=== PATIENT | female | born 1935 | race Caucasian/White ===

== ENCOUNTER 2019-01-18 16:40 | Inpatient (IN) ==
[2019-01-18] MEDS ORDERED: SODIUM CHLORIDE 0.9% 1,000 ML IV STA (17:10)
[2019-01-18 17:28] LABS: Basophils # 0.1 10*3/uL (0.0-0.2); Basophils % 0.7 % (0.0-0.8); Eosinophils # 0.1 10*3/uL (0.0-0.87); Eosinophils % 0.7 % (0.00-10.9); Hematocrit 43.2 VOL% (35.7-47.0); Hemoglobin 13.4 GM/DL (12.0-16.0); Immature Granulocytes % 0.5 %; Immature Granulocytes Absolute 0.04 #; Lymphocytes # 0.5 10*3/uL (1.4-4.0); Lymphocytes % 6.3 % (21.3-54.2); Mean Corpuscular Volume 87.4 FL (87-102); Mean Platelet Volume 12.1 FL (9.6-12.0); Monocytes % 7.7 % (1.7-12.7); Neutrophils % 84.1 % (38.7-73.9); Platelet Count 228 T/CUMM (130-400); Red Blood Count 4.94 MC/CUMM (3.8-5.5); Red Cell Distribution Width 13.3 % (9.3-17.3); White Blood Count 8.3 T/CUMM (4-12)
[2019-01-18 17:37] LABS: PT Patient Result 10.9 SECS
[2019-01-18 17:45] LABS: Alanine Aminotransferase < 9 U/L (13-56); Albumin 2.5 G/DL (3.4-5.0); Alkaline Phosphatase 126 U/L (45-117); Aspartate Amino Transferase 21 U/L (0-37); Bilirubin,Total < 0.39 MG/DL (0.2-1.0); Blood Urea Nitrogen 26 MG/DL (7-18); Calcium 7.5 MG/DL (8.5-10.1); Glucose 85 MG/DL (74-106); Osmolality,Calculated 284.3 MOS/KG (273-304); Total Protein 5.1 G/DL (6.4-8.3)
[2019-01-18 17:45] LABS: Apearance,Urine Slightly Hazy (Clear); Bacteria,Urine Occasional /HPF (Few); Bilirubin,Urine Negative (Negative); Blood, Urine Negative (Negative); Glucose,Urine (UA) Negative (Negative); Hyaline Casts,Urine 57 /LPF (0-3); Ketones,Urine 20 mg/dL (Negative); Mucus,Urine Occasional /LPF (Occasional); Nitrite,Urine Negative (Negative); Protein,Urine 30 MG/DL; Squamous Epithelial Cell,Urine Occasional /HPF (0-10); Urine Color Yellow (Yellow); Urine Specific Gravity 1.024 (1.001-1.035)
[2019-01-18] MEDS ORDERED: cefTRIAXone 1,000 MG in SODIUM CHLORIDE 0.9% 100 ML IV STA (18:08)
[2019-01-18] MEDS ORDERED: ACETAMINOPHEN 325 MG TABLET PO PRN (19:38)
[2019-01-18] MEDS ORDERED: ONDANSETRON 4 MG/2 ML VIAL IV PRN (19:38)
[2019-01-18] MEDS ORDERED: MORPHINE 4 MG/1 ML VIAL IV PRN (19:38)
[2019-01-18] MEDS ORDERED: SODIUM CHLORIDE 0.9% 1,000 ML IV SCH (19:38)
[2019-01-18] MEDS: ENOXAPARIN 40 MG/0.4 ML SYRINGE SUBCUT SCH (20:51)
[2019-01-18] MEDS: DOCUSATE SODIUM 100 MG CAPSULE PO SCH (21:25)
[2019-01-18] MEDS: DONEPEZIL 10 MG TABLET PO SCH (21:25)
[2019-01-18] MEDS: MEMANTINE 10 MG TABLET PO SCH (21:25)
[2019-01-18] MEDS: CARBIDOPA/LEVODOPA CR 25-100 MG TABLET PO SCH (21:25)
[2019-01-18] MEDS: ALBUTEROL/IPRATROPIUM 3 ML NEB RESP TX SCH (23:35)
[2019-01-19] MEDS: ALBUTEROL/IPRATROPIUM 3 ML NEB RESP TX SCH ×6 (04:00→23:00)
[2019-01-19 05:02] LABS: Basophils % 0.8 % (0.0-0.8); Eosinophils # 0.1 10*3/uL (0.0-0.87); Hematocrit 37.4 VOL% (35.7-47.0); Hemoglobin 11.9 GM/DL (12.0-16.0); Immature Granulocytes % 0.2 %; Immature Granulocytes Absolute 0.01 #; Lymphocytes # 0.6 10*3/uL (1.4-4.0); Lymphocytes % 11.8 % (21.3-54.2); Mean Corpuscular HGB Conc 31.8 GM/DL (32-36); Mean Platelet Volume 12.2 FL (9.6-12.0); Monocytes % 10.3 % (1.7-12.7); Neutrophils % 75.9 % (38.7-73.9); Platelet Count 169 T/CUMM (130-400); Red Cell Distribution Width 13.4 % (9.3-17.3); White Blood Count 5.2 T/CUMM (4-12)
[2019-01-19 05:20] LABS: Alanine Aminotransferase < 9 U/L (13-56); Albumin 2.1 G/DL (3.4-5.0); Alkaline Phosphatase 108 U/L (45-117); Aspartate Amino Transferase 18 U/L (0-37); Blood Urea Nitrogen 23 MG/DL (7-18); Calcium 7.2 MG/DL (8.5-10.1); Glucose 68 MG/DL (74-106); Osmolality,Calculated 287.8 MOS/KG (273-304); Total Protein 4.6 G/DL (6.4-8.3)
[2019-01-19] MEDS ORDERED: PANTOPRAZOLE 40 MG VIAL IV SCH (09:00)
[2019-01-19] MEDS: CARBIDOPA/LEVODOPA CR 25-100 MG TABLET PO SCH ×3 (09:29→21:07)
[2019-01-19] MEDS: ASCORBIC ACID 500 MG TABLET PO SCH (09:29)
[2019-01-19] MEDS: FERROUS SULFATE 325 MG TABLET PO SCH (09:30)
[2019-01-19] MEDS: MEMANTINE 10 MG TABLET PO SCH ×2 (09:30→21:07)
[2019-01-19] MEDS: ASPIRIN EC 81 MG TABLET PO SCH (09:30)
[2019-01-19] MEDS: amLODIPine 5 MG TABLET PO SCH (09:30)
[2019-01-19] MEDS: LOSARTAN 50 MG TABLET PO SCH (09:30)
[2019-01-19] MEDS: DEXTROSE 5% NACL 0.45% 1,000 ML IV SCH ×2 (09:30→19:39)
[2019-01-19] MEDS: PARoxetine 20 MG TABLET PO SCH (09:30)
[2019-01-19] MEDS: ROSUVASTATIN 10 MG TABLET PO SCH (09:30)
[2019-01-19] MEDS: PANTOPRAZOLE 40 MG TABLET PO SCH (09:30)
[2019-01-19] MEDS: DOCUSATE SODIUM 100 MG CAPSULE PO SCH ×2 (09:30→21:07)
[2019-01-19] MEDS: LEVOTHYROXINE 75 MCG TABLET PO SCH (09:30)
[2019-01-19] MEDS: cefTRIAXone 1,000 MG in SYRINGE 1 EACH IV SCH (18:41)
[2019-01-19] MEDS: ENOXAPARIN 40 MG/0.4 ML SYRINGE SUBCUT SCH (21:07)
[2019-01-19] MEDS: DONEPEZIL 10 MG TABLET PO SCH (21:07)
[2019-01-20] MEDS: ALBUTEROL/IPRATROPIUM 3 ML NEB RESP TX SCH ×5 (03:00→19:20)
[2019-01-20] MEDS: LEVOTHYROXINE 75 MCG TABLET PO SCH (05:16)
[2019-01-20] MEDS: DEXTROSE 5% NACL 0.45% 1,000 ML IV SCH (05:16)
[2019-01-20] MEDS: amLODIPine 5 MG TABLET PO SCH (08:49)
[2019-01-20] MEDS: ROSUVASTATIN 10 MG TABLET PO SCH (08:49)
[2019-01-20] MEDS: PANTOPRAZOLE 40 MG TABLET PO SCH (08:49)
[2019-01-20] MEDS: PARoxetine 20 MG TABLET PO SCH (08:49)
[2019-01-20] MEDS: DOCUSATE SODIUM 100 MG CAPSULE PO SCH ×3 (08:49→21:38)
[2019-01-20] MEDS: CARBIDOPA/LEVODOPA CR 25-100 MG TABLET PO SCH ×3 (08:49→21:37)
[2019-01-20] MEDS: ASCORBIC ACID 500 MG TABLET PO SCH (08:49)
[2019-01-20] MEDS: ASPIRIN EC 81 MG TABLET PO SCH (08:49)
[2019-01-20] MEDS: LOSARTAN 50 MG TABLET PO SCH (08:49)
[2019-01-20] MEDS: FERROUS SULFATE 325 MG TABLET PO SCH (08:49)
[2019-01-20] MEDS: MEMANTINE 10 MG TABLET PO SCH ×2 (08:50→21:37)
[2019-01-20] MEDS: cefTRIAXone 1,000 MG in SYRINGE 1 EACH IV SCH (17:19)
[2019-01-20] MEDS: DONEPEZIL 10 MG TABLET PO SCH (21:37)
[2019-01-20] MEDS: ENOXAPARIN 40 MG/0.4 ML SYRINGE SUBCUT SCH (21:37)
[2019-01-21] MEDS: DEXTROSE 5% NACL 0.45% 1,000 ML IV SCH ×3 (00:01→11:04)
[2019-01-21] MEDS: ALBUTEROL/IPRATROPIUM 3 ML NEB RESP TX SCH ×4 (01:42→12:28)
[2019-01-21] MEDS: LEVOTHYROXINE 75 MCG TABLET PO SCH (05:42)
[2019-01-21] MEDS: MEMANTINE 10 MG TABLET PO SCH (09:29)
[2019-01-21] MEDS: FERROUS SULFATE 325 MG TABLET PO SCH (09:29)
[2019-01-21] MEDS: ROSUVASTATIN 10 MG TABLET PO SCH (09:29)
[2019-01-21] MEDS: DOCUSATE SODIUM 100 MG CAPSULE PO SCH (09:30)
[2019-01-21] MEDS: amLODIPine 5 MG TABLET PO SCH (09:30)
[2019-01-21] MEDS: PARoxetine 20 MG TABLET PO SCH (09:30)
[2019-01-21] MEDS: ASPIRIN EC 81 MG TABLET PO SCH (09:31)
[2019-01-21] MEDS: ASCORBIC ACID 500 MG TABLET PO SCH (09:31)
[2019-01-21] MEDS: LOSARTAN 50 MG TABLET PO SCH (09:31)
[2019-01-21] MEDS: PANTOPRAZOLE 40 MG TABLET PO SCH (09:32)
[2019-01-21] MEDS: CARBIDOPA/LEVODOPA CR 25-100 MG TABLET PO SCH (09:32)
[2019-01-21 11:14] VITALS: BP 137/62
== END 2019-01-21 11:00 | disposition home health service (06) | DRG 641 ==
LOC: EDUNIT# → N.ED 16:40 → N.EDINP 19:07 → N.5E 19:53
PROVIDERS: ADMIT Family Medicine; ATTEND Family Medicine

== ENCOUNTER 2019-05-06 12:51 | Inpatient (IN) ==
[2019-05-06] MEDS ORDERED: POTASSIUM BICARB EFFERVESCENT 25 MEQ TABLET PO ONE (13:22)
[2019-05-06 14:08] LABS: Apearance,Urine CLEAR (Clear); Bacteria,Urine Moderate /HPF (Few); Bilirubin,Urine Negative (Negative); Blood, Urine Negative (Negative); Glucose,Urine (UA) Negative (Negative); Ketones,Urine Negative (Negative); Nitrite,Urine Negative (Negative); Protein,Urine Negative; RBC,Urine <1 /HPF (0-4); Urine Color Yellow (Yellow); Urine Specific Gravity 1.009 (1.001-1.035); Urine Urobilinogen < 2.0 EU/DL (0.2-1.0); WBC,Urine 24 /HPF (0-6)
[2019-05-06] MEDS: POTASSIUM CHLORIDE INJ 30 MEQ in SODIUM CHLORIDE 0.9% 1,000 ML IV SCH (14:15)
[2019-05-06 14:43] LABS: Basophils % 0.2 % (0.0-0.8); Eosinophils % 0.2 % (0.00-10.9); Hematocrit 38.7 VOL% (35.7-47.0); Hemoglobin 12.5 GM/DL (12.0-16.0); Immature Granulocytes Absolute 0.05 #; Lymphocytes % 20.6 % (21.3-54.2); Mean Corpuscular HGB Conc 32.3 GM/DL (32-36); Mean Corpuscular Volume 86.6 FL (87-102); Mean Platelet Volume 9.4 FL (9.6-12.0); Monocytes % 8.2 % (1.7-12.7); Neutrophils % 69.8 % (38.7-73.9); Platelet Count 290 T/CUMM (130-400); Red Blood Count 4.47 MC/CUMM (3.8-5.5); White Blood Count 4.9 T/CUMM (4-12)
[2019-05-06 15:08] LABS: Albumin 1.5 G/DL (3.4-5.0); Bilirubin,Total 0.4 MG/DL (0.2-1.0); Calcium 6.9 MG/DL (8.5-10.1); Osmolality,Calculated 269.4 MOS/KG (273-304); Thyroid Stimulating Hormone 4.78 uIU/ml (0.358-3.74); Total Protein 4.2 G/DL (6.4-8.3)
[2019-05-06] MEDS ORDERED: cefTRIAXone 1,000 MG in SODIUM CHLORIDE 0.9% 100 ML IV STA (15:47)
[2019-05-06] MEDS ORDERED: DEXTROSE 5% NACL 0.45% 1,000 ML IV SCH (18:34)
[2019-05-06] MEDS ORDERED: ACETAMINOPHEN 325 MG TABLET PO PRN (18:34)
[2019-05-06] MEDS ORDERED: ONDANSETRON 4 MG/2 ML VIAL IV PRN (18:34)
[2019-05-06] MEDS: DONEPEZIL 10 MG TABLET PO SCH (20:22)
[2019-05-06] MEDS: CARBIDOPA/LEVODOPA CR 25-100 MG TABLET PO SCH (20:23)
[2019-05-06] MEDS: CALCIUM (CARBONATE)/VITAMIN D 600 MG-400 UNIT TABLET PO SCH (20:23)
[2019-05-06] MEDS: DOCUSATE SODIUM 100 MG CAPSULE PO SCH ×2 (20:23→20:25)
[2019-05-06] MEDS: MEMANTINE 10 MG TABLET PO SCH (20:23)
[2019-05-06] MEDS ORDERED: ENOXAPARIN 30 MG/0.3 ML SYRINGE SUBCUT SCH (21:00)
[2019-05-07] MEDS: POTASSIUM CHLORIDE INJ 30 MEQ in SODIUM CHLORIDE 0.9% 1,000 ML IV SCH ×4 (00:20→23:44)
[2019-05-07] MEDS: LEVOTHYROXINE 75 MCG TABLET PO SCH (05:58)
[2019-05-07 06:05] LABS: Basophils % 0.2 % (0.0-0.8); Eosinophils % 0.4 % (0.00-10.9); Hematocrit 35.1 VOL% (35.7-47.0); Hemoglobin 11.6 GM/DL (12.0-16.0); Immature Granulocytes % 0.6 %; Immature Granulocytes Absolute 0.03 #; Lymphocytes % 19.7 % (21.3-54.2); Mean Corpuscular Volume 85.4 FL (87-102); Mean Platelet Volume 9.7 FL (9.6-12.0); Monocytes % 9.4 % (1.7-12.7); Neutrophils % 69.7 % (38.7-73.9); Platelet Count 267 T/CUMM (130-400); Red Blood Count 4.11 MC/CUMM (3.8-5.5); Red Cell Distribution Width 16.1 % (9.3-17.3); White Blood Count 4.9 T/CUMM (4-12)
[2019-05-07 06:31] LABS: Calcium 6.9 MG/DL (8.5-10.1); Osmolality,Calculated 273.8 MOS/KG (273-304)
[2019-05-07] MEDS ORDERED: ROPIVACAINE 0.5% 30 ML VIAL ONE (07:36)
[2019-05-07] MEDS: MEMANTINE 10 MG TABLET PO SCH ×2 (09:07→22:09)
[2019-05-07] MEDS: PARoxetine 20 MG TABLET PO SCH (09:07)
[2019-05-07] MEDS: CALCIUM (CARBONATE)/VITAMIN D 600 MG-400 UNIT TABLET PO SCH ×2 (09:07→22:10)
[2019-05-07] MEDS: FERROUS SULFATE 325 MG TABLET PO SCH (09:07)
[2019-05-07] MEDS: DOCUSATE SODIUM 100 MG CAPSULE PO SCH ×2 (09:07→22:09)
[2019-05-07] MEDS: PANTOPRAZOLE 40 MG TABLET PO SCH (09:07)
[2019-05-07] MEDS: amLODIPine 5 MG TABLET PO SCH (09:07)
[2019-05-07] MEDS: CARBIDOPA/LEVODOPA CR 25-100 MG TABLET PO SCH ×3 (09:08→22:09)
[2019-05-07] MEDS: cefTRIAXone 1,000 MG in SYRINGE 1 EACH IV SCH (09:08)
[2019-05-07] MEDS: DONEPEZIL 10 MG TABLET PO SCH (22:10)
[2019-05-07] MEDS: ENOXAPARIN 40 MG/0.4 ML SYRINGE SUBCUT SCH (22:11)
[2019-05-08] MEDS: LEVOTHYROXINE 75 MCG TABLET PO SCH (06:44)
[2019-05-08] MEDS: CARBIDOPA/LEVODOPA CR 25-100 MG TABLET PO SCH ×3 (08:33→20:43)
[2019-05-08] MEDS: CALCIUM (CARBONATE)/VITAMIN D 600 MG-400 UNIT TABLET PO SCH ×2 (08:33→20:44)
[2019-05-08] MEDS: PANTOPRAZOLE 40 MG TABLET PO SCH (08:33)
[2019-05-08] MEDS: MEMANTINE 10 MG TABLET PO SCH ×2 (08:33→20:43)
[2019-05-08] MEDS: POTASSIUM CHLORIDE INJ 30 MEQ in SODIUM CHLORIDE 0.9% 1,000 ML IV SCH ×2 (08:33→19:23)
[2019-05-08] MEDS: amLODIPine 5 MG TABLET PO SCH (08:33)
[2019-05-08] MEDS: cefTRIAXone 1,000 MG in SYRINGE 1 EACH IV SCH (08:34)
[2019-05-08] MEDS: FERROUS SULFATE 325 MG TABLET PO SCH (08:34)
[2019-05-08] MEDS: DOCUSATE SODIUM 100 MG CAPSULE PO SCH ×3 (08:34→22:18)
[2019-05-08] MEDS: PARoxetine 20 MG TABLET PO SCH (08:34)
[2019-05-08] MEDS: DONEPEZIL 10 MG TABLET PO SCH (20:43)
[2019-05-08] MEDS: ENOXAPARIN 40 MG/0.4 ML SYRINGE SUBCUT SCH (20:44)
[2019-05-09] MEDS: POTASSIUM CHLORIDE INJ 30 MEQ in SODIUM CHLORIDE 0.9% 1,000 ML IV SCH ×2 (03:27→11:33)
[2019-05-09] MEDS: LEVOTHYROXINE 75 MCG TABLET PO SCH (06:42)
[2019-05-09] MEDS: PARoxetine 20 MG TABLET PO SCH (08:08)
[2019-05-09] MEDS: FERROUS SULFATE 325 MG TABLET PO SCH (08:08)
[2019-05-09] MEDS: DOCUSATE SODIUM 100 MG CAPSULE PO SCH ×2 (08:08→22:26)
[2019-05-09] MEDS: MEMANTINE 10 MG TABLET PO SCH ×2 (08:08→22:27)
[2019-05-09] MEDS: CALCIUM (CARBONATE)/VITAMIN D 600 MG-400 UNIT TABLET PO SCH ×2 (08:08→22:26)
[2019-05-09] MEDS: CARBIDOPA/LEVODOPA CR 25-100 MG TABLET PO SCH ×3 (08:08→22:26)
[2019-05-09] MEDS: PANTOPRAZOLE 40 MG TABLET PO SCH (08:09)
[2019-05-09] MEDS: cefTRIAXone 1,000 MG in SYRINGE 1 EACH IV SCH (08:09)
[2019-05-09] MEDS: amLODIPine 5 MG TABLET PO SCH (08:09)
[2019-05-09] MEDS ORDERED: FUROSEMIDE 20 MG/2 ML VIAL IV ONE (11:00)
[2019-05-09] MEDS ORDERED: POTASSIUM CHLORIDE INJ 30 MEQ in SODIUM CHLORIDE 0.9% 1,000 ML IV SCH (11:30)
[2019-05-09 11:55] LABS: Calcium 7.3 MG/DL (8.5-10.1); Osmolality,Calculated 285.8 MOS/KG (273-304)
[2019-05-09] MEDS: HYDROCORTISONE 25 MG SUPP RECTAL PRN ×2 (12:05→22:26)
[2019-05-09] MEDS: DEXTROSE 5% NACL 0.45% 1,000 ML IV SCH (14:12)
[2019-05-09] MEDS: BISACODYL 5 MG TABLET PO SCH (14:12)
[2019-05-09] MEDS: VANCOMYCIN 50 MG/ML 60 ML/BOTTLE PO SCH (17:41)
[2019-05-09] MEDS: ENOXAPARIN 40 MG/0.4 ML SYRINGE SUBCUT SCH (22:27)
[2019-05-09] MEDS: DONEPEZIL 10 MG TABLET PO SCH (22:27)
[2019-05-10] MEDS: VANCOMYCIN 50 MG/ML 60 ML/BOTTLE PO SCH ×4 (00:33→18:15)
[2019-05-10] MEDS: LEVOTHYROXINE 75 MCG TABLET PO SCH (06:11)
[2019-05-10] MEDS: amLODIPine 5 MG TABLET PO SCH (08:56)
[2019-05-10] MEDS: DOCUSATE SODIUM 100 MG CAPSULE PO SCH ×2 (08:56→22:07)
[2019-05-10] MEDS: BISACODYL 5 MG TABLET PO SCH (08:56)
[2019-05-10] MEDS: CALCIUM (CARBONATE)/VITAMIN D 600 MG-400 UNIT TABLET PO SCH ×2 (08:56→22:07)
[2019-05-10] MEDS: MEMANTINE 10 MG TABLET PO SCH ×2 (08:56→22:08)
[2019-05-10] MEDS: FERROUS SULFATE 325 MG TABLET PO SCH (08:57)
[2019-05-10] MEDS: CARBIDOPA/LEVODOPA CR 25-100 MG TABLET PO SCH ×3 (08:57→22:08)
[2019-05-10] MEDS: PANTOPRAZOLE 40 MG TABLET PO SCH (08:57)
[2019-05-10] MEDS: PARoxetine 20 MG TABLET PO SCH (08:57)
[2019-05-10] MEDS ORDERED: ZINC OXIDE PASTE 113 GM TUBE TOP PRN (10:07)
[2019-05-10] MEDS: DEXTROSE 5% NACL 0.45% 1,000 ML IV SCH (11:02)
[2019-05-10] MEDS: DONEPEZIL 10 MG TABLET PO SCH (22:07)
[2019-05-10] MEDS: ENOXAPARIN 40 MG/0.4 ML SYRINGE SUBCUT SCH (22:08)
[2019-05-11] MEDS: VANCOMYCIN 50 MG/ML 60 ML/BOTTLE PO SCH ×3 (00:44→13:18)
[2019-05-11] MEDS: LEVOTHYROXINE 75 MCG TABLET PO SCH (07:00)
[2019-05-11] MEDS ORDERED: MORPHINE 4 MG/1 ML VIAL IV PRN (07:10)
[2019-05-11] MEDS ORDERED: LORazepam 2 MG/1 ML VIAL IV PRN (07:10)
[2019-05-11] MEDS: DEXTROSE 5% NACL 0.45% 1,000 ML IV SCH (07:18)
[2019-05-11 11:59] VITALS: BP 103/68
== END 2019-05-11 16:23 | disposition hospice, inpatient (51) | DRG 690 ==
LOC: EDUNIT# → EDBD → N.EDINP 12:51 → N.ED 12:51 → N.2E 17:04
PROVIDERS: ADMIT Family Medicine; ATTEND Family Medicine